=== PATIENT | female | born 1995 | race African-American/Black ===

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

== ENCOUNTER 2019-10-31 15:30 | Emergency (ER) | payer MEDICAID, OTHER ==
[~2019-10-31] VITALS: Ht 162.6 cm; Wt 51.0 kg
[2019-10-31] MEDS ORDERED: ONDANSETRON 4MG ODT PO STA (17:29)
[2019-10-31] MEDS ORDERED: SODIUM CHLORIDE 0.9% 1,000 ML IV ONE (17:29)
[2019-10-31 18:16] LABS: BASOPHILS % 0.7 % (0.0-2.0); EOSINOPHILS % 0.1 % (0.0-5.0); HEMATOCRIT. 38.4 % (36.0-48.0); HEMOGLOBIN. 12.6 g/dL (12.0-16.0); LYMPHOCYTES % 8.3 % (20.0-50.0); MEAN CORPUSCULAR HEMOGLOBIN 26.4 pg (28.0-32.0); MEAN CORPUSCULAR VOLUME 80.2 fL (81.0-99.0); MEAN PLATELET VOLUME 7.2 fl (7.4-10.4); MONOCYTES % 3.3 % (2.0-8.0); NEUTROPHILS % 87.6 % (40.0-76.0); PLATELET 302 x1000/uL (130-400); RED BLOOD CELL COUNT 4.79 mill/uL (4.2-5.4); RED CELL DISTRIBUTION WIDTH 14.9 % (11.6-14.6)
[2019-10-31 18:22] LABS: CHLORIDE 102 mEq/L (98-107)
[2019-10-31 18:23] LABS: PROTHROMBIN TIME 11.2 sec (9.6-11.0)
[2019-10-31 18:27] LABS: ETHANOL BLOOD < 10 mg/dL
[2019-10-31 18:28] LABS: HCG SCREEN NEGATIVE
[2019-10-31 20:30] VITALS: BP 111/72
== END 2019-10-31 21:56 | disposition home or self-care (01) ==
LOC: ER 15:30
DX: R10.31 Right lower quadrant pain (principal); R11.10 Vomiting, unspecified; N83.201 Unspecified ovarian cyst, right side; F12.10 Cannabis abuse, uncomplicated; N83.291 Other ovarian cyst, right side
CPT/HCPCS: 36415; 74176; 80053; 80320; 83690; 84703; 85025; 85610; 96360; 96361; 99284; J7030; Q0162; G0480

== ENCOUNTER 2020-08-07 16:04 | Emergency (ER) | payer OTHER ==
[~2020-08-07] VITALS: Ht 170.2 cm; Wt 55.0 kg
[2020-08-07 16:24] VITALS: BP 11/79
[2020-08-07 17:51] LABS: CLARITY URINE CLEAR (CLEAR); COLOR URINE YELLOW (YELLOW); KETONES URINE TRACE (NEGATIVE); LEUKOCYTE ESTERASE URINE 2+ (NEGATIVE); NITRITE URINE NEGATIVE (NEGATIVE); OCCULT BLOOD URINE NEGATIVE (NEGATIVE); PH URINE 6.5 (4.5-8.0); PROTEIN URINE NEGATIVE (NEGATIVE); SPECIFIC GRAVITY URINE 1.033 (1.005-1.030)
[2020-08-07] MEDS ORDERED: CEFTRIAXONE SODIUM 250 MG/VIAL IM STA (18:07)
[2020-08-07] MEDS ORDERED: AZITHROMYCIN 500 MG TABLET PO STA (18:07)
[2020-08-07] MEDS ORDERED: LIDOCAINE HCL 1% 20ML VIAL (Pyxis) INJ INFIL ONE (18:15)
== END 2020-08-07 18:45 | disposition home or self-care (01) ==
LOC: ER 16:10
DX: N76.0 Acute vaginitis (principal); N39.0 Urinary tract infection, site not specified; G40.909 Epilepsy, unspecified, not intractable, without status epilepticus
CPT/HCPCS: 81003; 81025; 87086; 96372; 99283; J0696; J3490

== ENCOUNTER 2024-02-16 15:32 | Emergency (ER) | payer OTHER ==
[~2024-02-16] VITALS: Ht 167.6 cm; Wt 47.6 kg
[2024-02-16 15:58] LABS: BASOPHILS % 0.5 % (0.0-2.0); EOSINOPHILS % 0.3 % (0.0-5.0); HEMATOCRIT. 40.4 % (36.0-48.0); HEMOGLOBIN. 13.3 g/dL (12.0-16.0); LYMPHOCYTES % 13.2 % (20.0-50.0); MEAN CORPUSCULAR HEMOGLOBIN 27.7 pg (28.0-32.0); MONOCYTES % 5.5 % (2.0-8.0); NEUTROPHILS % 80.5 % (40.0-76.0); PLATELET 363 x1000/uL (130-400); RED CELL DISTRIBUTION WIDTH 14.4 % (11.6-14.6); WHITE BLOOD COUNT 11.4 x1000/uL (4.5-11.0)
[2024-02-16 16:03] LABS: CHLORIDE 97 mEq/L (98-107); POTASSIUM 3.4 mEq/L (3.5-5.1); SODIUM 134 mEq/L (136-145)
[2024-02-16 16:04] VITALS: BP 117/88; PULSE 64; TEMP 98.3; O2SAT 100
[2024-02-16 16:04] LABS: CALCIUM 10.2 mg/dL (8.7-10.4); CARBON DIOXIDE 28 mEq/L (21-32)
[2024-02-16 16:09] LABS: CREATININE 0.9 mg/dL (0.6-1.0); GLUCOSE 96 mg/dL (70-105); UREA NITROGEN BLOOD 22 mg/dL (9-23)
[2024-02-16] MEDS ORDERED: KEPP500 MT (16:55)
[2024-02-16] MEDS: LEVETIRACETAM 500MG TABLET PO ONE (17:20)
== END 2024-02-16 17:26 | disposition home or self-care (01) ==
LOC: ER 15:32
DX: G40.909 Epilepsy, unspecified, not intractable, without status epilepticus (principal); F12.10 Cannabis abuse, uncomplicated
CPT/HCPCS: 36415; 80048; 82542; 85025; 93005; 99284

== ENCOUNTER 2024-06-02 16:53 | Emergency (ER) | payer OTHER ==
[~2024-06-02] VITALS: Ht 167.6 cm; Wt 60.0 kg
[~2024-06-02 16:53] MED LIST: KEPP500 MT
[2024-06-02 17:07] VITALS: TEMP 98.5; O2SAT 100
[2024-06-02 20:33] LABS: BASOPHILS % 1.1 % (0.0-2.0); EOSINOPHILS % 1.8 % (0.0-5.0); HEMATOCRIT. 41.9 % (36.0-48.0); HEMOGLOBIN. 13.8 g/dL (12.0-16.0); LYMPHOCYTES % 21.9 % (20.0-50.0); MEAN CORPUSCULAR HEMOGLOBIN 28.3 pg (28.0-32.0); MEAN CORPUSCULAR HGB CONC 32.9 g/dL (31.0-37.0); MEAN CORPUSCULAR VOLUME 86.1 fL (81.0-99.0); MEAN PLATELET VOLUME 7.4 fl (7.4-10.4); MONOCYTES % 5.4 % (2.0-8.0); NEUTROPHILS % 69.8 % (40.0-76.0); PLATELET 258 x1000/uL (130-400); RED BLOOD CELL COUNT 4.86 mill/uL (4.2-5.4); RED CELL DISTRIBUTION WIDTH 14.8 % (11.6-14.6); WHITE BLOOD COUNT 6.3 x1000/uL (4.5-11.0)
[2024-06-02] MEDS ORDERED: CYCL10TA21 MT (20:46)
[2024-06-02] MEDS ORDERED: NAPR-1176 MT (20:46)
[2024-06-02 20:52] LABS: CHLORIDE 107 mEq/L (98-107); POTASSIUM 3.9 mEq/L (3.5-5.1); SODIUM 139 mEq/L (136-145)
[2024-06-02 20:53] LABS: CARBON DIOXIDE 29 mEq/L (21-32)
[2024-06-02 20:54] LABS: CALCIUM 9.8 mg/dL (8.7-10.4)
[2024-06-02 20:58] LABS: CREATININE 0.8 mg/dL (0.6-1.0); GLUCOSE 85 mg/dL (70-105); UREA NITROGEN BLOOD 12 mg/dL (9-23)
[2024-06-02 21:00] LABS: ALANINE AMINOTRANSFERASE < 7 IU/L (10-49); ALBUMIN 4.4 g/dL (3.2-4.8); ASPARTATE AMINOTRANSFERASE 17 IU/L (<34)
[2024-06-02 21:01] LABS: BILIRUBIN DIRECT 0.1 mg/dL (<=3.0); BILIRUBIN TOTAL 0.5 mg/dL (0.1-1.0); PROTEIN TOTAL 7.7 g/dL (6.0-8.3)
[2024-06-02 21:05] VITALS: BP 124/76; PULSE 78; RESP 14; O2SAT 99
[2024-06-02 21:06] LABS: HCG SCREEN NEGATIVE
== END 2024-06-02 21:18 | disposition home or self-care (01) ==
LOC: ER 16:53
DX: M41.9 Scoliosis, unspecified (principal); M54.50 Low back pain, unspecified; F12.90 Cannabis use, unspecified, uncomplicated; Z98.890 Other specified postprocedural states
CPT/HCPCS: 36415; 80048; 80076; 84703; 85025; 99283